=== PATIENT | male | born 1950 | race Caucasian/White ===

== ENCOUNTER 2024-02-10 10:03 | Day surgery (SDC) | payer MEDICARE, OTHER, SELFPAY ==
[2024-02-10] VITALS (11 sets, daily range): BP systolic 141–202; BP diastolic 56–74; BMI 23.5
[2024-02-10 11:03] LABS: Blood Urea Nitrogen 23 mg/dl (9-20); Calcium 9.9 mg/dl (8.4-10.2); Carbon Dioxide 22 mmol/L (22-30); Chloride 103 mmol/L (98-107); Estimated Creatinine Clearance 59 ml/min; Glucose 107 mg/dl (70-99); Potassium 4.6 mmol/L (3.5-5.1); Sodium 133 mmol/L (135-145); eGFR > 60.00
[2024-02-10] MEDS: NSS 210 ML IV (11:11)
--- NOTE | 2024-02-10 12:49 | ITS.CL.CATH ---
[employer] - Catheterization
Cardiac Catheterization
Procedure Report:
CARDIAC CATHETERIZATION REPORT
Date of Procedure: 02/10/2024
Referring: Mitch Alanis MD
Indication: Abnormal stress test
HEMODYNAMIC DATA
AO: 159/60
LV: 159/17
LEFT VENTRICULOGRAPHY: Normal left ventricular function with EF 68%
CORONARY ANGIOGRAPHY
Dominance: Right
Left Main: Normal
LAD: Mild calcification with trivial luminal irregularities
Circumflex: Normal
RCA: Mild calcification with trivial luminal irregularities
Closure Device: None-the procedure was performed via the right radial artery. The Mumtaz's test was normal prior to the procedure.
Radiation (mGy): 126
DAP (cm2.Gy): 11.5
Fluoroscopy time: 2.6 minutes
CONCLUSIONS
1: Systemic hypertension
2: Normal left ventricular function with EF 68%
3. Mild coronary calcification with trivial luminal irregularities. There is no obstructive disease
4. Recommend low-dose aspirin and statin therapy to achieve LDL less than 70
Copy to: Mitch Alanis MD, Huber Lyman MD
Baron Martinez MD, [facility], [facility]
== END 2024-02-10 15:35 | disposition home or self-care (01) ==
LOC: CATH 10:03
PROVIDERS: ATTENDING PHYSICIAN Internal Medicine Cardiovascular Disease; FAMILY PHYSICIAN Internal Medicine; OTHER PHYSICIAN Internal Medicine Cardiovascular Disease
DX: I25.10 Atherosclerotic heart disease of native coronary artery without angina pectoris (principal); R94.39 Abnormal result of other cardiovascular function study; E78.5 Hyperlipidemia, unspecified; I12.9 Hypertensive chronic kidney disease with stage 1 through stage 4 chronic kidney disease, or unspecified chronic kidney disease; F17.290 Nicotine dependence, other tobacco product, uncomplicated; N18.31 Chronic kidney disease, stage 3a; I05.2 Rheumatic mitral stenosis with insufficiency; I65.23 Occlusion and stenosis of bilateral carotid arteries; Z79.82 Long term (current) use of aspirin
CPT/HCPCS: 80048; 93005; 93458; C1894; Q9967